=== PATIENT | male | born 1980 | race Caucasian/White ===

== ENCOUNTER 2022-10-02 17:52 | Emergency (ER) | payer MEDICAID, SELFPAY ==
[2022-10-02 17:54] VITALS: BP 136/90; PULSE 114; RESP 18; TEMP 36.8; O2SAT 96; BMI 27.3
--- NOTE | 2022-10-02 17:58 | ECG_ITS ---
[facility] Test Date: 2022-10-02 Pat Name: Jonatan Marquez Department: Room: Gender: Male Smt Operator: : 1980 Requested By: Krish Jurado Order Number: [id number] Kathie MD: Randi Awan M.D. Measurements Intervals [place] Rate: 115 P: 67 [place]: 134 QRS: 90 QRSD: 92 T: -57 QT: 302 QTc: 418 Interpretive Statements SINUS TACHYCARDIA MODERATE T-WAVE ABNORMALITY, CONSIDER INFERIOR ISCHEMIA [-0.1+ mV T-WAVE IN II/aVF] INTERPRETATION BASED ON A DEFAULT AGE OF 42 YEARS No previous ECG available for comparison Electronically Signed On 10-02-2022 18:12:43 CDT by Randi Awan M.D. [email or web address])/store/[id number] f
--- NOTE | 2022-10-02 18:15 | XRR_ITS ---
PROCEDURE INFORMATION: Exam: XR Chest Exam date and time: 10/02/2022 6:30 PM Age: 41 years old Clinical indication: Pain; Chest pressure; Additional info: Chest pain TECHNIQUE: Imaging protocol: Radiologic exam of the chest. Views: 1 view. COMPARISON: No relevant prior studies available. FINDINGS: Lungs: Lungs are clear bilaterally. Pleural spaces: No pleural effusion. No pneumothorax. Heart/Mediastinum: The cardiac silhouette and mediastinal contours are unremarkable. Bones/joints: Unremarkable for age. XR/XR chest 1V portable [id number] IMPRESSION: No acute cardiopulmonary process.
--- NOTE | 2022-10-02 18:51 | W.ED.CHESTPA ---
HPI - Chest Pain General: Chief Complaint: Chest Pain Stated Complaint: chest pain Time Seen by Provider: 10/02/22 18:34 History of Present Illness: Patient presents to the ER with left-sided chest pain radiating between his shoulder blades down his left arm. Patient reports this has increased with increase in blood pressure is also increase in stress. Patient's just left him 7 days ago after 19 years of marriage. Patient states he has had this pain 1 other previous time but did not go and get it checked out and went away. Patient reports nausea dizziness sweating and shortness of breath this time. Review of Systems General: Reports: 10 or more systems reviewed and unremarkable except in HPI and below Physical Exam Const: COMMON NORMALS: no acute distress, average body habitus, patient oriented x3, no limitations, healthy appearing, alert and well nourished HENMT: COMMON NORMALS: atraumatic, hearing grossly normal bilaterally, external ears normal, Normal external nose present and moist oral mucous membranes HEAD & SCALP: atraumatic NOSE: Normal external nose present EXTERNAL EAR: Yes external ears normal Neck/C-Spine: COMMON NORMALS: full ROM, no lymphadenopathy, supple, no meningeal signs, no JVD and Thyroid normal THYROID: Thyroid normal Chest: COMMONS NORMALS: normal inspection of the chest; negative for normal palpation of entire chest wall (Palpation of the left lateral chest wall very tender.) Resp: COMMON NORMALS: normal respiratory effort, No retractions, No use of accessory muscles and clear to auscultation bilaterally AUSCULTATION: clear to auscultation bilaterally Cardio: COMMON NORMALS: no JVD, regular rate, regular rhythm, S1 normal heart sound present, S2 normal heart sound present, No gallops present (Cardio), No clicks present (Cardio), No murmurs present (Cardio) and No rub (Cardio) RATE: regular rate RHYTHM: regular rhythm HEART SOUNDS: S1 normal heart sound present and S2 normal heart sound present GI: COMMON NORMALS: Normal to inspection, nondistended, normoactive bowel sounds present, Soft to palpation, non-tender, No hepatosplenomegaly present and no masses PALPATION: Yes Soft to palpation and Yes No hepatosplenomegaly present : COMMON NORMALS: Yes no CVA tenderness BLADDER/KIDNEY EXAM: Yes no CVA tenderness Back/Pelvis: COMMON NORMALS: no CVA tenderness Neuro: COMMON NORMALS: patient oriented x3 SENSORIUM/ORIENTATION: Yes alert MENINGEAL SIGNS: Yes no meningeal signs Course Vital Signs: Vital signs: Vital Signs Temperature 98.2 F 10/02/22 17:54 Pulse Rate 114 H 10/02/22 17:54 Respiratory Rate 18 10/02/22 17:54 Blood Pressure 136/90 10/02/22 17:54 Pulse Oximetry 96 10/02/22 17:54 Oxygen Delivery Me thod Room Air 10/02/22 17:54 MDM - Chest Pain Medical Decision Making Upon starting work-up on the patient while waiting to get lab work back patient decided he was going to leave AMA. Patient's not actively having chest pain at this moment. It was discussed in detail the patient that this could lead to further injury debility and . Patient says he understands these risks and still wants to leave AMA. Differential Diagnosis Unlikely acute massive pulmonary embolism, acute respiratory failure, acute myocardial infarction, cardiac arrest or sudden cardiac Medical Records I reviewed the patient's medical records. Lab Data I reviewed the patient's lab results. 10/02/22 18:47 10/02/22 18:29 Radiology Impressions Chest X-Ray 10/02/22 18:15 IMPRESSION: No acute cardiopulmonary process. Laboratory Results WBC 10.6 10^3/uL (4.0-10.0) H 10/02/22 18:47 RBC 5.36 10^6/uL (4.1-5.3) H 10/02/22 18:47 Hgb 15.9 g/dL (11.7-16.6) 10/02/22 18:47 Hct 46.5 % (42.0-52.0) 10/02/22 18:47 MCV 86.8 fl (80-94) 10/02/22 18:47 MCH 29.7 pg (28.0-34.0) 10/02/22 18:47 MCHC 34.2 g/dL (30.0-36.0) 10/02/22 18:47 RDW 12.9 % (12.1-15.1) 10/02/22 18:47 Plt Count 399 10^3/cmm (130-400) 10/02/22 18:47 MPV 8.6 fL (7.4-10.4) 10/02/22 18:47 Neut % (Auto) 70.3 % 10/02/22 18:47 Lymph % (Auto) 17.5 % 10/02/22 18:47 [place] % (Auto) 9.6 % 10/02/22 18:47 Eos % (Auto) 1.5 % 10/02/22 18:47 Baso % (Auto) 0.6 % 10/02/22 18:47 Neut # (Auto) 7.48 10^3/uL (1.8-7.7) 10/02/22 18:47 Lymph # (Auto) 1.9 10^3/uL (0.8-4.8) 10/02/22 18:47 [place] # (Auto) 1.0 10^3/uL (0.2-0.9) H 10/02/22 18:47 Eos # (Auto) 0.2 10^3/uL (0.0-0.8) 10/02/22 18:47 Baso # (Auto) 0.1 10^3/uL (0.0-0.1) 10/02/22 18:47 Nucleated RBC % (auto) 0 % 10/02/22 18:47 Nucleated RBCs # 0.0 /100WBC 10/02/22 18:47 Sodium 137 mmol/L (136-145) 10/02/22 18:29 Potassium 4.4 mmol/L (3.5-5.1) 10/02/22 18:29 Chloride 101 mmol/L (98-107) 10/02/22 18:29 Carbon Dioxide 23 mmol/L (22-29) 10/02/22 18:29 Anion Gap 17.4 (5-19) 10/02/22 18:29 BUN 17 mg/dL (6-20) 10/02/22 18:29 Creatinine 1.2 mg/dL (0.7-1.2) 10/02/22 18:29 GFR Calculation 67.4 mL/min (90-130) L 10/02/22 18:29 Glucose 80 mg/dL (65-115) 10/02/22 18:29 Calculated Osmolality 285 mOsm/kg (285-295) 10/02/22 18:29 Calcium 9.3 mg/dL (8.5-10.5) 10/02/22 18:29 Total Bilirubin 0.3 mg/dL (0.15-1.2) 10/02/22 18:29 AST 24 U/L (0-40) 10/02/22 18:29 ALT 20 U/L (0-41) 10/02/22 18:29 Alkaline Phosphatase 87 U/L (40-130) 10/02/22 18:29 Troponin T Baseline 6 ng/L (0-15) 10/02/22 18:29 Total Protein 7.1 g/dL (6.6-8.7) 10/02/22 18:29 Albumin 4.5 g/dL (3.5-5.2) 10/02/22 18:29 Globulin 2.6 g/dL (1.3-4.6) 10/02/22 18:29 Discharge Plan Discharge Patient Disposition: Left Against Medical Advice Clinical Impression: Chest pain Condition: Stable Coding Level of Care Code ED Nutritional Yeast Supervisor for Donell Kurtz
[2022-10-02 18:56] LABS: Basophils # 0.1 10^3/uL (0.0-0.1); Basophils % 0.6 %; Eosinophils # 0.2 10^3/uL (0.0-0.8); Eosinophils % 1.5 %; Hematocrit 46.5 % (42.0-52.0); Hemoglobin 15.9 g/dL (11.7-16.6); Lymphocytes # 1.9 10^3/uL (0.8-4.8); Lymphocytes % 17.5 %; Mean Corpuscular HGB Conc 34.2 g/dL (30.0-36.0); Mean Corpuscular Hemoglobin 29.7 pg (28.0-34.0); Mean Corpuscular Volume 86.8 fl (80-94); Mean Platelet Volume 8.6 fL (7.4-10.4); Monocytes % 9.6 %; Neutrophils # 7.48 10^3/uL (1.8-7.7); Neutrophils % 70.3 %; Nucleated Red Blood Cells % 0 %; Platelet Count 399 10^3/cmm (130-400); Red Blood Count 5.36 10^6/uL (4.1-5.3); Red Cell Distribution Width 12.9 % (12.1-15.1); White Blood Count 10.6 10^3/uL (4.0-10.0)
[2022-10-02 19:01] LABS: Troponin(5th) Baseline 6 ng/L (0-15)
[2022-10-02 19:02] LABS: Alanine Aminotransferase 20 U/L (0-41); Albumin Level 4.5 g/dL (3.5-5.2); Alkaline Phosphatase 87 U/L (40-130); Blood Urea Nitrogen 17 mg/dL (6-20); Calcium 9.3 mg/dL (8.5-10.5); Carbon Dioxide 23 mmol/L (22-29); Chloride 101 mmol/L (98-107); Globulin 2.6 g/dL (1.3-4.6); Glomerular Filtration Rate 67.4 mL/min (90-130); Glucose 80 mg/dL (65-115); Osmolality Calculated 285 mOsm/kg (285-295); Sodium 137 mmol/L (136-145); Total Bilirubin 0.3 mg/dL (0.15-1.2); Total Protein 7.1 g/dL (6.6-8.7)
[2022-10-02 19:04] LABS: Anion Gap 17.4 (5-19); Aspartate Amino Transferase 24 U/L (0-40); Potassium 4.4 mmol/L (3.5-5.1)
== END 2022-10-02 19:44 | disposition left against medical advice (07) ==
PROVIDERS: Emergency Provider Emergency Medicine
DX: Z63.0 Problems in relationship with spouse or partner (principal); Z53.29 Procedure and treatment not carried out because of patient's decision for other reasons; R07.89 Other chest pain
CPT/HCPCS: 36415; 71045; 80053; 84484; 85025; 93005; 99285

== ENCOUNTER 2022-10-15 20:41 | Emergency (ER) | payer MEDICAID, SELFPAY ==
--- NOTE | 2022-10-15 20:50 | ED_ITS ---
HPI - Chest Pain General: Chief Complaint: Chest Pain Stated Complaint: cp, High B/P Time Seen by Provider: 10/15/22 20:50 History of Present Illness: 42-year-old male presenting with high blood pressure, chest discomfort, right upper extremity discomfort. Notes onset of symptoms initially intermittent over the past few weeks. Today he had a headache and describes a weird feeling. Overall course of symptoms has worsened. Moderate in intensity. No other specific changes in health, exacerbating, or alleviating factors identified. Onset (ago): week(s) Timing of current episode: increasing Severity: moderate Associated symptoms: Reports other Review of Systems General: Reports: 10 or more systems reviewed and unremarkable except in HPI and below PFSH ED PFSH: Medical History (Updated 10/28/22 @ 10:13 by Adan Reid MD) No significant past medical history Surgical History (Updated 10/28/22 @ 10:13 by Adan Reid MD) No significant past surgical history Physical Exam Const: COMMON NORMALS: patient oriented x3 and alert GENERAL APPEARANCE: cooperative and well developed HENMT: COMMON NORMALS: normocephalic and atraumatic HEAD & SCALP: normocephalic and atraumatic Eye: COMMON NORMALS: conjunctivae normal CONJUNCTIVA: Yes conjunctivae normal SCLERA: sclerae normal Neck/C-Spine: COMMON NORMALS: supple GENERAL: Yes trachea midline Resp: COMMON NORMALS: normal respiratory effort EFFORT & INSPECTION: Yes able to speak in complete sentences Cardio: COMMON NORMALS: regular rate and regular rhythm RATE: regular rate RHYTHM: regular rhythm GI: COMMON NORMALS: Soft to palpation PALPATION: Yes Soft to palpation and No Tenderness to palpation present (GI) Extremity: NARRATIVE EXTREMITY EXAM: Normal range of motion. CMS intact GENERAL: Yes normal exam except as noted and No edema Neuro: COMMON NORMALS: patient oriented x3, CN's II-XII intact bilaterally, moves all extremities, no focal motor deficits and no sensory deficits noted SENSORIUM/ORIENTATION: Yes alert and No Orientation impaired Psych: COMMON NORMALS: mental status grossly normal and Normal thought process present THOUGHT PROCESS: Normal thought process present Course Vital Signs: Vital signs: Vital Signs Temperature 98.7 F 10/15/22 20:52 Pulse Rate 81 10/15/22 23:33 Respiratory Rate 21 H 10/15/22 23:33 Blood Pressure 144/86 10/15/22 23:33 Pulse Oximetry 93 10/15/22 23:33 Oxygen Delivery Me thod Room Air 10/15/22 20:52 MDM - Chest Pain Medical Decision Making 42-year-old gentleman presenting to the emergency department for evaluation of chest pain and generalized symptoms. Exam as above. Nontoxic. No focal deficits. EKG demonstrates sinus rhythm with nonspecific ST segment abnormalities. Normal axis and intervals, no STEMI. Labs with mild leukocytosis, normal hemoglobin and platelet count. Metabolic panel with normal electrolytes. ALT minimally elevated though no right upper quadrant tenderness to palpation. COVID-negative. Chest x-ray with no lobar consolidation or pneumothorax. Patient treated with aspirin, headache treatment and significantly improved with resolution of headache. Patient does have a number of risk factors including positive family history for early cardiac disease. Additionally I believe that he has had long-term poorly controlled chronic health conditions including high blood pressure. He does require further cardiac testing. The results of ED evaluation were discussed with the patient including prescriptions and/or symptomatic cares (if applicable) including possible disposition options. I discussed risk stratification by heart score and estimated risk of major adverse cardiac events. The patient wishes to proceed with outpatient management. I discussed appropriate and responsible use, followup plan, and return precautions. The patient verbalized understanding and felt safe for discharge. Medical Records I reviewed the patient's medical records. Lab Data I reviewed the patient's lab results. 10/15/22 20:58 10/15/22 20:58 Radiology Impressions Chest X-Ray 10/15/22 21:09 IMPRESSION: No acute findings. Laboratory Results WBC 13.1 10^3/uL (4.0-10.0) H 10/15/22 20:58 RBC 5.32 10^6/uL (4.1-5.3) H 10/15/22 20:58 Hgb 15.6 g/dL (11.7-16.6) 10/15/22 20:58 Hct 46.4 % (42.0-52.0) 10/15/22 20:58 MCV 87.2 fl (80-94) 10/15/22 20:58 MCH 29.3 pg (28.0-34.0) 10/15/22 20:58 MCHC 33.6 g/dL (30.0-36.0) 10/15/22 20:58 RDW 13.7 % (12.1-15.1) 10/15/22 20:58 Plt Count 387 10^3/cmm (130-400) 10/15/22 20:58 MPV 8.9 fL (7.4-10.4) 10/15/22 20:58 Neut % (Auto) 64.1 % 10/15/22 20:58 Lymph % (Auto) 23.3 % 10/15/22 20:58 [place] % (Auto) 7.7 % 10/15/22 20:58 Eos % (Auto) 3.4 % 10/15/22 20:58 Baso % (Auto) 0.8 % 10/15/22 20:58 Neut # (Auto) 8.37 10^3/uL (1.8-7.7) H 10/15/22 20:58 Lymph # (Auto) 3.0 10^3/uL (0.8-4.8) 10/15/22 20:58 [place] # (Auto) 1.0 10^3/uL (0.2-0.9) H 10/15/22 20:58 Eos # (Auto) 0.4 10^3/uL (0.0-0.8) 10/15/22 20:58 Baso # (Auto) 0.1 10^3/uL (0.0-0.1) 10/15/22 20:58 Nucleated RBC % (auto) 0 % 10/15/22 20:58 Nucleated RBCs # 0.0 /100WBC 10/15/22 20:58 Sodium 140 mmol/L (136-145) 10/15/22 20:58 Potassium 4.4 mmol/L (3.5-5.1) 10/15/22 20:58 Chloride 104 mmol/L (98-107) 10/15/22 20:58 Carbon Dioxide 26 mmol/L (22-29) 10/15/22 20:58 Anion Gap 14.4 (5-19) 10/15/22 20:58 BUN 12 mg/dL (6-20) 10/15/22 20:58 Creatinine 1.2 mg/dL (0.7-1.2) 10/15/22 20:58 GFR Calculation 67.1 mL/min (90-130) L 10/15/22 20:58 Glucose 91 mg/dL (65-115) 10/15/22 20:58 Calculated Osmolality 289 mOsm/kg (285-295) 10/15/22 20:58 Calcium 9.1 mg/dL (8.5-10.5) 10/15/22 20:58 Total Bilirubin 0.2 mg/dL (0.15-1.2) 10/15/22 20:58 AST 38 U/L (0-40) 10/15/22 20:58 ALT 75 U/L (0-41) H 10/15/22 20:58 Alkaline Phosphatase 93 U/L (40-130) 10/15/22 20:58 Troponin T Baseline 6 ng/L (0-15) 10/15/22 20:58 Troponin T 120 Minute 6.00 ng/L (0-15) 10/15/22 22:45 Delta Troponin T 0 ABS# (0-10) 10/15/22 22:45 NT-Pro-B Natriuret Pep 59 pg/mL (0-125) 10/15/22 20:58 Total Protein 6.5 g/dL (6.6-8.7) L 10/15/22 20:58 Albumin 4.0 g/dL (3.5-5.2) 10/15/22 20:58 Globulin 2.5 g/dL (1.3-4.6) 10/15/22 20:58 Lipase 25 U/L (13-60) 10/15/22 20:58 SARS-CoV-2 Ag (Rapid) negative (Negative) 10/15/22 22:05 Discharge Plan Discharge Patient Disposition: Home Clinical Impression: Chest pain Condition: Stable Prescriptions: New amlodipine 5 mg tablet 5 mg PO DAILY Qty: 30 0RF Discharge Orders: Discharge ED (Routine); Ordered 10/15/22 Ordered By: Adan Reid Referrals: Emani Henry, [Primary Care Provider] - Discharge Diet: Usual diet Discharge Activity: Resume usual activity Patient Instructions: Chest Pain (ED) Activity Restrictions/Additional Instructions: Thank you for visiting the emergency department. You were seen and evaluated for chest pain. The exact cause your symptoms is unclear. As discussed I do believe that this requires further testing as you do have significant risk factors for adverse cardiac events. I will message case management for follow-up. Please also follow-up with your primary care provider. Return to the emergency department for anything that you are concerned about and feel needs emergency department evaluation. Coding Level of Care Code ED Supplier Relationship Director for Donell Kurtz
[2022-10-15 20:52] VITALS: BP 152/113; PULSE 97; RESP 18; TEMP 37.1; O2SAT 98
--- NOTE | 2022-10-15 20:56 | ECG_ITS ---
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 Measurements Intervals [place] Rate: 92 P: 63 [place]: 143 QRS: 71 QRSD: 89 T: 43 QT: 338 QTc: 420 Interpretive Statements SINUS RHYTHM NONSPECIFIC T-WAVE ABNORMALITY Compared to ECG 10/02/2022 17:58:24 Sinus tachycardia no longer present Possible ischemia no longer present T-wave abnormality still present Electronically Signed On 10-16-2022 7:58:08 CDT by Rishi Reyes M.D. [email or web address] [email or web address].[place]/store/OM/[id number]
--- NOTE | 2022-10-15 21:09 | XRR_ITS ---
PROCEDURE INFORMATION: Exam: XR Chest Exam date and time: 10/15/2022 9:30 PM Age: 42 years old Clinical indication: Pain; Chest pressure; Additional info: Cp TECHNIQUE: Imaging protocol: Radiologic exam of the chest. Views: 1 view. COMPARISON: CR (CHEST, ) 10/02/2022 6:30 PM FINDINGS: Lungs: Unremarkable. No consolidation. Pleural spaces: Unremarkable. No pleural effusion. No pneumothorax. Heart/Mediastinum: Unremarkable. No cardiomegaly. Bones/joints: Unremarkable. XR/XR chest 1V portable [id number] IMPRESSION: No acute findings.
--- NOTE | 2022-10-15 21:09 | ECG_ITS ---
[facility] Test Date: 2022-10-15 Pat Name: Jonatan Marquez Department: Room: Gender: Male Rehab Liaison: : 1980 Requested By: Adan Reid Order Number: [id number] Vázquez MD: Rishi Reyes M.D. Measurements Intervals [place] Rate: 93 P: 66 [place]: 141 QRS: 76 QRSD: 90 T: 42 QT: 330 QTc: 412 Interpretive Statements SINUS RHYTHM Compared to ECG 10/02/2022 17:58:24 Sinus tachycardia no longer present T-wave abnormality no longer present Possible ischemia no longer present Electronically Signed On 10-16-2022 7:58:16 CDT by Rishi Reyes M.D. [email or web address]/[id number] f
[2022-10-15 21:14] LABS: Basophils # 0.1 10^3/uL (0.0-0.1); Basophils % 0.8 %; Eosinophils # 0.4 10^3/uL (0.0-0.8); Eosinophils % 3.4 %; Hematocrit 46.4 % (42.0-52.0); Hemoglobin 15.6 g/dL (11.7-16.6); Lymphocytes % 23.3 %; Mean Corpuscular HGB Conc 33.6 g/dL (30.0-36.0); Mean Corpuscular Hemoglobin 29.3 pg (28.0-34.0); Mean Corpuscular Volume 87.2 fl (80-94); Mean Platelet Volume 8.9 fL (7.4-10.4); Monocytes % 7.7 %; Neutrophils # 8.37 10^3/uL (1.8-7.7); Neutrophils % 64.1 %; Nucleated Red Blood Cells % 0 %; Platelet Count 387 10^3/cmm (130-400); Red Blood Count 5.32 10^6/uL (4.1-5.3); Red Cell Distribution Width 13.7 % (12.1-15.1); White Blood Count 13.1 10^3/uL (4.0-10.0)
[2022-10-15 21:16] VITALS: BP 145/101; PULSE 88; RESP 18; O2SAT 98
[2022-10-15] MEDS: aspirin 81 mg Chew Tablet 324 MG PO (21:19)
[2022-10-15 21:33] LABS: Troponin(5th) Baseline 6 ng/L (0-15)
[2022-10-15 21:42] LABS: Alanine Aminotransferase 75 U/L (0-41); Alkaline Phosphatase 93 U/L (40-130); Anion Gap 14.4 (5-19); Aspartate Amino Transferase 38 U/L (0-40); Blood Urea Nitrogen 12 mg/dL (6-20); Calcium 9.1 mg/dL (8.5-10.5); Carbon Dioxide 26 mmol/L (22-29); Chloride 104 mmol/L (98-107); Globulin 2.5 g/dL (1.3-4.6); Glomerular Filtration Rate 67.1 mL/min (90-130); Glucose 91 mg/dL (65-115); Lipase 25 U/L (13-60); NT Pro B Type Natriuretic Pept 59 pg/mL (0-125); Osmolality Calculated 289 mOsm/kg (285-295); Potassium 4.4 mmol/L (3.5-5.1); Sodium 140 mmol/L (136-145); Total Bilirubin 0.2 mg/dL (0.15-1.2); Total Protein 6.5 g/dL (6.6-8.7)
[2022-10-15] MEDS: sodium chloride 0.9% 1,000 ML 999 ML IV (22:07)
[2022-10-15] MEDS: metoclopramide 5 mg/mL SDV 2 mL 10 MG IVP (22:07)
[2022-10-15] MEDS: ketorolac 30 mg/mL INJ 15 MG IVP (22:07)
[2022-10-15 22:10] VITALS: BP 122/82; PULSE 87; RESP 18; O2SAT 94
[2022-10-15 22:35] LABS: SARS Covid-2 Antigen negative (Negative)
[2022-10-15 23:03] VITALS: PULSE 78; RESP 15; O2SAT 95
--- NOTE | 2022-10-15 23:09 | ECG_ITS ---
[facility] Test Date: 2022-10-15 Pat Name: Jonatan Marquez Department: Room: Gender: Male Regional Economic Liaison: : 1980 Requested By: Adan Reid Order Number: [id number] Vázquez MD: Rishi Reyes M.D. Measurements Intervals [place] Rate: 82 P: 71 [place]: 166 QRS: 74 QRSD: 90 T: 38 QT: 361 QTc: 424 Interpretive Statements SINUS RHYTHM NONSPECIFIC T-WAVE ABNORMALITY Compared to ECG 10/15/2022 21:10:26 No significant changes Electronically Signed On 10-16-2022 7:59:34 CDT by Rishi Reyes M.D. [email or web address] Servicesocean springs hospitalAdaptlyuniversity hospitals [facility].[employer]/store/OM/[id number]
[2022-10-15 23:19] LABS: Troponin 5 2HR Delta 0 ABS# (0-10)
[2022-10-15 23:33] VITALS: BP 144/86; PULSE 81; RESP 21; O2SAT 93
== END 2022-10-15 23:34 | disposition home or self-care (01) ==
PROVIDERS: Emergency Provider Emergency Medicine; PCP Family Medicine
DX: R07.89 Other chest pain (principal); R51.9 Headache, unspecified
CPT/HCPCS: 71045; 80053; 83690; 83880; 84484; 85025; 87426; 93005; 96374; 96375; 99285; J1885; J2765; J7030

== ENCOUNTER 2023-01-16 10:21 | Emergency (ER) | payer MEDICAID, SELFPAY ==
--- NOTE | 2023-01-16 10:31 | ED_ITS ---
HPI - General Adult General: Chief complaint: General Medical Stated complaint: left arm numbness/pain Time Seen by Provider: 01/16/23 10:24 Source: patient Mode of arrival: ambulatory History of Present Illness: 42-year-old male presents emergency room with complaint of left arm numbness and pain. Associated symptoms: Deny dyspnea or headache(s) Review of Systems Const: Denies: chills Resp: Denies: dyspnea GI: Denies: abdominal pain : Denies: dysuria Musc: Denies: neck pain or back pain Skin/Breast: Denies: pruritus Neuro: Denies: headache(s) [facility] ED PFSH: Medical History No significant past medical history Surgical History No significant past surgical history Physical Exam Const: COMMON NORMALS: no acute distress GENERAL APPEARANCE: cooperative and comfortable ORIENTATION/CONSCIOUSNESS: Yes awake, Yes oriented to person, Yes oriented to place and Yes oriented to time HENMT: COMMON NORMALS: normocephalic, atraumatic and hearing grossly normal bilaterally HEAD & SCALP: normocephalic and atraumatic Resp: COMMON NORMALS: normal respiratory effort, No retractions, No use of acc essory muscles and clear to auscultation bilaterally AUSCULTATION: clear to auscultation bilaterally Cardio: COMMON NORMALS: regular rate, regular rhythm and No murmurs present (Cardio) RATE: regular rate RHYTHM: regular rhythm GI: COMMON NORMALS: Soft to palpation and No hepatosplenomegaly present AUSCULTATION: Yes normoactive bowel sounds PALPATION: Yes Soft to palpation, No Tenderness to palpation present (GI), No Guarding due to palpation present (G I) and Yes No hepatosplenomegaly present Extremity: COMMON NORMALS: normal to inspection, capillary refill normal, no clubbing, cyanosis or edema, no calf tenderness and no pedal edema Neuro: SENSORIUM/ORIENTATION: Yes oriented to person, Yes oriented to place and Yes oriented to time Skin: COMMON NORMALS: no rashes or lesions noted GENERAL SKIN EXAM: no rashes or lesions noted Course Vital Signs: Vital signs: Vital Signs Temperature 98.0 F 01/16/23 10:35 Pulse Rate 84 01/16/23 13:33 Respiratory Rate 22 H 01/16/23 13:33 Blood Pressure 140/97 01/16/23 13:33 Pulse Oximetry 95 01/16/23 13:36 Oxygen Delivery Me thod Room Air 01/16/23 13:36 MDM - General Adult Medical Decision Making Reviewed labs imaging and EKG with the patient. EKG does not show any acute changes troponin is trending normal. From his history suspect he has more ce rvical radicular symptoms. He does have a family history of heart disease. He also has had hypertensive issues in the past he supposed to be on amlodipine but had not been filling it because of logistical issues with his insurance he does have insurance now. We will discharge patient home prednisone taper muscle relaxers and anti-inflammatories. Encouraged him to follow-up with his primary care doctor for further evaluation may require advanced imaging. Prescription given for his amlodipine to restart at 5 mg daily she also follow-up with primary care doctor on this. Due to his family history of heart disease and his history of hypertension we will have him set up for an outpatient graded exercise stress test if is worsening or change symptoms return to the emergency room. Medical Records I reviewed the patient's medical records. Lab Data I reviewed the patient's lab results. 01/16/23 11:10 01/16/23 11:10 Radiology Impressions Chest X-Ray 01/16/23 11:00 IMPRESSION: Negative chest exam. Laboratory Results WBC 7.82 10^3/uL (3.29-11.43) 01/16/23 11:10 RBC 5.31 10^6/uL (3.85-5.65) 01/16/23 11:10 Hgb 15.80 g/dL (11.27-16.99) 01/16/23 11:10 Hct 46.9 % (37-53) 01/16/23 11:10 MCV 88.3 fl (82-101) 01/16/23 11:10 MCH 29.8 pg (27-33) 01/16/23 11:10 MCHC 33.7 g/dL (30-55) 01/16/23 11:10 RDW 13.2 % (12.1-15.1) 01/16/23 11:10 Plt Count 324 10^3/cmm (157-399) 01/16/23 11:10 MPV 8.8 fL (7.4-10.4) 01/16/23 11:10 Neut % (Auto) 60.4 % 01/16/23 11:10 Lymph % (Auto) 25.4 % 01/16/23 11:10 [place] % (Auto) 8.2 % 01/16/23 11:10 Eos % (Auto) 4.6 % 01/16/23 11:10 Baso % (Auto) 0.9 % 01/16/23 11:10 Neut # (Auto) 4.72 10^3/uL (1.8-7.7) 01/16/23 11:10 Lymph # (Auto) 2.0 10^3/uL (0.8-4.8) 01/16/23 11:10 [place] # (Auto) 0.6 10^3/uL (0.2-0.9) 01/16/23 11:10 Eos # (Auto) 0.4 10^3/uL (0.0-0.8) 01/16/23 11:10 Baso # (Auto) 0.1 10^3/uL (0.0-0.1) 01/16/23 11:10 Nucleated RBC % (auto) 0 % 01/16/23 11:10 Nucleated RBCs # 0.0 /100WBC 01/16/23 11:10 Sodium 136 mmol/L (136-145) 01/16/23 11:10 Potassium 4.3 mmol/L (3.5-5.1) 01/16/23 11:10 Chloride 102 mmol/L (98-107) 01/16/23 11:10 Carbon Dioxide 25 mmol/L (22-29) 01/16/23 11:10 Anion Gap 13.3 (5-19) 01/16/23 11:10 BUN 14 mg/dL (6-20) 01/16/23 11:10 Creatinine 1.0 mg/dL (0.7-1.2) 01/16/23 11:10 GFR Calculation 82.8 mL/min (90-130) L 01/16/23 11:10 Glucose 101 mg/dL (65-115) 01/16/23 11:10 Calculated Osmolality 283 mOsm/kg (285-295) L 01/16/23 11:10 Calcium 9.0 mg/dL (8.5-10.5) 01/16/23 11:10 Total Bilirubin 0.2 mg/dL (0.15-1.2) 01/16/23 11:10 AST 23 U/L (0-40) 01/16/23 11:10 ALT 33 U/L (0-41) 01/16/23 11:10 Alkaline Phosphatase 85 U/L (40-130) 01/16/23 11:10 Troponin T Baseline < 6 ng/L (0-15) 01/16/23 11:10 Troponin T 120 Minute < 6.0 ng/L (0-15) 01/16/23 13:01 Delta Troponin T 0 ABS# (0-10) 01/16/23 13:01 Total Protein 6.5 g/dL (6.6-8.7) L 01/16/23 11:10 Albumin 4.0 g/dL (3.5-5.2) 01/16/23 11:10 Globulin 2.5 g/dL (1.3-4.6) 01/16/23 11:10 All radiology interpretation(s) finalized by discharge Discharge Plan Discharge Patient Disposition: Home Clinical Impression: Radiculopathy of arm, Atypical chest pain, HTN (hypertension) Condition: Stable Prescriptions: New tizanidine 4 mg tablet 4 mg PO Q6H PRN (Reason: muscle spasticity) Qty: 20 0RF Rx Instructions: do not exceed 3 doses per 24 hrs prednisone 20 mg tablet 20 mg PO TID Qty: 15 0RF Rx Instructions: 1 p.o. 3 times daily x3 days, 1 p.o. twice daily x2 days, 1 p.o. daily x2 days diclofenac sodium 75 mg tablet,delayed release (DR/EC) 75 mg PO Q12H PRN (Reason: pain) Qty: 20 0RF amlodipine 5 mg tablet 5 mg PO DAILY Qty: 30 0RF No Action vitamin E 670 mg (1,000 unit) Capsule 1 cap PO DAILY aspirin 325 mg Tablet 650 mg PO DAILY@12 garlic 500 mg Capsule 500 mg PO DAILY Cinnamon 500 mg Capsule 1,500 mg PO QAM khurram root extract 50 mg Tablet 50 mg PO DAILY Discharge Orders: Discharge ED (Routine); Ordered 01/16/23 Ordered By: Krish Pradhan Referrals: Emani Henry DO [Primary Care Provider] - Discharge Diet: Usual diet Discharge Activity: Limit activity as instructed Patient Instructions: Opioid Safety, Pain Management Activity Restrictions/Additional Instructions: EKG and cardiac enzymes were normal. Suspect your left arm pain is due to radiculopathy (impingement of the nerve in the neck). We will start you on muscle relaxers steroid taper and anti-inflammatories. To further rule out heart issues you will be scheduled for an outpatient cardiac stress test. Coding Level of Care Code ED Display Director for Donell Kurtz
[2023-01-16 10:35] VITALS: BP 136/106; PULSE 98; RESP 16; TEMP 36.7; O2SAT 97
--- NOTE | 2023-01-16 10:36 | ECG_ITS ---
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 Measurements Intervals [place] Rate: 89 P: 65 NH: 165 QRS: 73 QRSD: 85 T: 38 QT: 322 QTc: 393 Interpretive Statements SINUS RHYTHM NONSPECIFIC T-WAVE ABNORMALITY Compared to ECG 10/15/2022 23:09:52 No significant changes Electronically Signed On 01-17-2023 22:55:02 CDT by Rishi Reyes M.D. [id number]
--- NOTE | 2023-01-16 10:50 | PC.PHAR ---
pt states he takes care of his own medications-pt states he has been out of his amlodipine 5mg daily for a month-states a er dr wrote rx states didnt have a pcp at the time for refills so not taken for a month-pt states for about 4 days he has been taking vitamin v-gputjt-bin khurram root daily-pt states he also takes cinnamon 3 caps qam and aspirin 325mg takes 2 tabs at noon -notes are made in the pharmacy comments
--- NOTE | 2023-01-16 11:00 | XRR_ITS ---
PROCEDURE INFORMATION: Exam: XR Chest Exam date and time: 01/16/2023 11:09 AM Age: 42 years old Clinical indication: Cough and dyspnea and shortness of breath; Smoker's cough; Patient HX: Left arm pain/numbness; HTN; Cough; SOB; Smoker x 20+ yrs TECHNIQUE: Imaging protocol: Radiologic exam of the chest. Views: 1 view. COMPARISON: CR XR chest 1V portable [id number] 10/15/2022 9:30 PM FINDINGS: Lungs: Unremarkable. No consolidation. Pleural spaces: Unremarkable. No pleural effusion. No pneumothorax. Heart/Mediastinum: Unremarkable. No cardiomegaly. Bones/joints: Unremarkable for age. XR/XR chest 1V portable [id number] IMPRESSION: Negative chest exam.
--- NOTE | 2023-01-16 11:03 | ECG_ITS ---
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 Measurements Intervals [place] Rate: 89 P: 60 ID: [id number] QRS: 68 QRSD: 89 T: 30 QT: 335 QTc: 408 Interpretive Statements Compared to ECG 01/16/2023 10:36:46 Sinus rhythm no longer present T-wave abnormality no longer present Electronically Signed On 01-17-2023 22:54:57 CDT by Rishi Reyes M.D. [id number]
[2023-01-16 11:20] LABS: Basophils # 0.1 10^3/uL (0.0-0.1); Basophils % 0.9 %; Eosinophils # 0.4 10^3/uL (0.0-0.8); Eosinophils % 4.6 %; Hematocrit 46.9 % (37-53); Lymphocytes % 25.4 %; Mean Corpuscular HGB Conc 33.7 g/dL (30-55); Mean Corpuscular Hemoglobin 29.8 pg (27-33); Mean Corpuscular Volume 88.3 fl (82-101); Mean Platelet Volume 8.8 fL (7.4-10.4); Monocytes # 0.6 10^3/uL (0.2-0.9); Monocytes % 8.2 %; Neutrophils # 4.72 10^3/uL (1.8-7.7); Neutrophils % 60.4 %; Nucleated Red Blood Cells % 0 %; Platelet Count 324 10^3/cmm (157-399); Red Blood Count 5.31 10^6/uL (3.85-5.65); Red Cell Distribution Width 13.2 % (12.1-15.1); White Blood Count 7.82 10^3/uL (3.29-11.43)
[2023-01-16] MEDS: aspirin 81 mg Chew Tablet 324 MG PO (11:26)
[2023-01-16] MEDS: dexamethasone 10 mg/mL INJ IM (11:27)
[2023-01-16] MEDS: ketorolac 30 mg/mL INJ IVP (11:40)
[2023-01-16 11:42] LABS: Troponin(5th) Baseline < 6 ng/L (0-15)
[2023-01-16 11:44] LABS: Alanine Aminotransferase 33 U/L (0-41); Alkaline Phosphatase 85 U/L (40-130); Anion Gap 13.3 (5-19); Aspartate Amino Transferase 23 U/L (0-40); Blood Urea Nitrogen 14 mg/dL (6-20); Carbon Dioxide 25 mmol/L (22-29); Chloride 102 mmol/L (98-107); Globulin 2.5 g/dL (1.3-4.6); Glomerular Filtration Rate 82.8 mL/min (90-130); Glucose 101 mg/dL (65-115); Osmolality Calculated 283 mOsm/kg (285-295); Potassium 4.3 mmol/L (3.5-5.1); Sodium 136 mmol/L (136-145); Total Bilirubin 0.2 mg/dL (0.15-1.2); Total Protein 6.5 g/dL (6.6-8.7)
[2023-01-16 13:33] VITALS: BP 140/97; PULSE 84; RESP 22; O2SAT 96
[2023-01-16 13:36] VITALS: O2SAT 95
[2023-01-16 13:44] LABS: Troponin 5 2HR < 6.0 ng/L (0-15); Troponin 5 2HR Delta 0 ABS# (0-10)
[2023-01-16 14:01] VITALS: BP 115/113; PULSE 106; RESP 19; O2SAT 95
[2023-01-16 14:02] VITALS: BP 155/113; PULSE 106; RESP 19; O2SAT 95
--- NOTE | 2023-01-16 14:22 | PC.SOCIAL ---
Orders for stress test faxed to centralized scheduling.
== END 2023-01-16 14:04 | disposition home or self-care (01) ==
PROVIDERS: Emergency Provider Family Medicine; PCP Family Medicine
DX: M54.10 Radiculopathy, site unspecified (principal); R07.89 Other chest pain; I10 Essential (primary) hypertension; Z79.82 Long term (current) use of aspirin
CPT/HCPCS: 36415; 71045; 80053; 84484; 85025; 93005; 96372; 96374; 99285; J1100; J1885